=== PATIENT | male | born 1990 | race African-American/Black ===

== ENCOUNTER 2018-09-04 07:10 | Emergency (ER) | payer SELFPAY ==
[2018-09-04 07:18] VITALS: BP 115/67
[2018-09-04] MEDS ORDERED: PENICILLIN V POTASSIUM 500 MG TABLET PO ONE (07:35)
[2018-09-04] MEDS ORDERED: HYDROCODONE/ACETAMINOPHEN 5-325 MG (6 TAB/ER DISP) PO PRN (07:35)
[2018-09-04] MEDS ORDERED: IBUPROFEN 600 MG TABLET PO ONE (07:35)
[2018-09-04] MEDS ORDERED: LIDOCAINE 2% VISCOUS SOLN 20 ML UDCUP PO ONE (07:35)
--- NOTE | 2018-09-04 07:39 | ER Document Report ---
HPI - HPI Time Seen by Provider: 09/04/18 07:23 Pain Level: 4 Notes: Patient is an otherwise healthy 27-year-old male who presents to the emergency department with complaint of right lower dental pain. He reports that he had a temporary crown placed approximately 2 years ago and had not been able to return to the dentist. He states that over the last week he has had constant throbbing to this area with worsening today. He states that he has a headache now due to this. He denies any fever. Past Medical History - General Information source: Patient - Social History Smoking Status: Current Some Day Smoker Frequency of alcohol use: None Drug Abuse: Marijuana Family History: Reviewed & Not Pertinent Patient has suicidal ideation: No Patient has homicidal ideation: No - Medical History Medical History: Negative Renal/ Medical History: Denies: Hx Peritoneal Dialysis Surgical Hx: Negative - Immunizations Hx Diphtheria, Pertussis, Tetanus Vaccination: Yes Vertical Provider Document - CONSTITUTIONAL Notes: PHYSICAL EXAMINATION: GENERAL: Well-appearing, well-nourished and in no acute distress. HEAD: Atraumatic, normocephalic. Mild facial swelling noted. EYES: Pupils equal round extraocular movements intact, conjunctiva are normal. ENT: Nares patent, erythema noted around tooth #19, no drainable abscess identified. Significant tenderness with palpation around the tooth. NECK: Normal range of motion LUNGS: No respiratory distress Musculoskeletal: Normal range of motion NEUROLOGICAL: Normal speech, normal gait. PSYCH: Normal mood, normal affect. SKIN: Warm, Dry, normal turgor, no rashes or lesions noted. Course - Re-evaluation Re-evalutation: 09/04/18 07:37 Patient has not been here previously for dental pain. Examination consistent with acute dental infection. Patient will be placed on penicillin, provided short course of analgesia and referred to dental. - Vital Signs Vital signs: Temp Pulse Resp BP Pulse Ox 98.3 F 61 14 115/67 100 09/04/18 07:18 09/04/18 07:18 09/04/18 07:18 09/04/18 07:18 09/04/18 07:18 Discharge - Discharge Clinical Impression: Dental infection Condition: Stable Disposition: HOME, SELF-CARE Additional Instructions: TOOTHACHE: Your pain is due to dental decay. The tooth must be repaired in order for you to feel better. You will, therefore, be referred to a dentist. We do not have dentists on the staff at [facility]. Severe swelling or drainage around a tooth usually means a dental abscess. This also requires evaluation and treatment by the dentist, but antibiotics may be prescribed while awaiting dental treatment. You should be rechecked immediately if you develop major swelling of the face, increasing pain, a lump in the jaw or gums, headache, difficulty swallowing, or fever. ORAL NARCOTIC MEDICATION: You have been given a prescription for pain control. This medication is a narcotic. It's best taken with food, as nausea can result if taken on an empty stomach. Don't operate machinery or drive within six hours of taking this medication. Do not combine this medicine with alcohol, or with any medication which can cause sedation (such as cold tablets or sleeping pills) unless you get permission from the physician. Narcotics tend to cause constipation. If possible, drink plenty of fluids and eat a diet high in fiber and fruits. Please be aware that prescription narcotics also have the potential for abuse. People become addicted to these medications because of the general sense of wellbeing that they induce. This feeling along with a significant reduction in tension, anxiety, and aggression provides a stimulating seductive quality to these drugs. Once your pain is under control, we encourage you to discard your unused narcotics. PENICILLIN V K: You have been given a prescription for Penicillin VK. Your physician has determined that this is the best antibiotic for your condition. Pen VK can be taken with meals, however more of the antibiotic gets into the bloodstream if it's taken on an empty stomach. Penicillin usually has no side effects. However, allergy to penicillins is common. If you have had an allergic reaction to any drug of the penicillin family, you should never take any other penicillin. Notify your doctor at once if you develop hives, itching, swelling, faintness, or shortness of breath. FOLLOW-UP CARE: You have been referred for follow-up care to the dentists listed below. Call the dentists office for an appointment as you were instructed or within the next two days. If you experience worsening or a significant change in your symptoms, notify the physician immediately or return to the Emergency Department at any time for re-evaluation. [address] Please take ibuprofen 600 mg every 6 hours for the next several days. This will not only help with the pain but also the inflammation. Use the hydrocodone that I provided you for severe pain only as we will not re-prescribe this. You may take 1/2-1 tablet every 4-6 hours. Use the lidocaine jelly as needed apply directly to the surrounding area of the tooth to help with pain. Please [facility] today to schedule an appointment. Prescriptions: Penicillin V Potassium [Penicillin Vk 500 mg Tablet] 500 mg PO BID #20 tablet Referrals: JASVIR KAT MD [Primary Care Provider] - Follow up as needed
== END 2018-09-04 07:53 | disposition home or self-care (01) ==
LOC: ER 07:10
DX: K04.7 Periapical abscess without sinus (principal); F17.200 Nicotine dependence, unspecified, uncomplicated
CPT/HCPCS: 99282; J3490

== ENCOUNTER 2018-10-10 18:25 | Emergency (ER) | payer SELFPAY ==
[2018-10-10] MEDS ORDERED: LIDOCAINE 1% INJ-PF (10 MG/ML) 30 ML SDV INJ ONE (20:10)
[2018-10-10] MEDS ORDERED: BUPIVACAINE HCL 0.5%-EPI 1:200000 INJ/PF 30 ML VIAL INJ ONE (20:10)
[2018-10-10] MEDS ORDERED: PENICILLIN V POTASSIUM 500 MG TABLET PO ONE (20:12)
--- NOTE | 2018-10-10 20:21 | ER Document Report ---
ED Oral Problem - General Chief Complaint: Toothache Stated Complaint: TOOTH PAIN Time Seen by Provider: 10/10/18 20:00 Mode of Arrival: Ambulatory Information source: Patient Notes: 27-year-old male presents to ED for complaint of dental pain times 6 weeks. He states he was seen here in the beginning of August and they sent him to the dentist. He states he went to the dentist and they gave him a bunch of paperwork and told him to come back on Sunday and they were telling whether he qualified for the dental care at the office. He states then he will have to get another appointment to have his tooth treated. He states that she has been taking [id number] medications with no improvement. He states he took all the medications he was given last time. Patient is alert oriented respirations regular and unlabored speaking in full sentences. He is accompanied by his mother who is stated she did take him to the dentist and he is scheduled to return on Sunday. TRAVEL OUTSIDE OF THE [place] IN LAST 30 DAYS: No - HPI Patient complains to provider of: Toothache Onset: Other - 6 weeks Onset: Gradual Quality of pain: Sharp, Throbbing Severity: Severe Pain Level: 5 Associated symptoms: Toothache Worsened by: Cold Relieved by: Nothing Similar symptoms previously: Yes Recently seen / treated by doctor/dentist: Yes - Related Data Allergies/Adverse Reactions: No Known Allergies Allergy (Verified 12/17/12 14:15) Past Medical History - General Information source: Patient - Social History Smoking Status: Current Every Day Smoker Chew tobacco use (# tins/day): No Frequency of alcohol use: None Drug Abuse: None Lives with: Spouse/Significant other Family History: Reviewed & Not Pertinent Patient has suicidal ideation: No Patient has homicidal ideation: No - Past Medical History Cardiac Medical History: Reports: None Pulmonary Medical History: Reports: None EENT Medical History: Reports: None Neurological Medical History: Reports: None Endocrine Medical History: Reports: None Renal/ Medical History: Reports: None Malignancy Medical History: Reports None GI Medical History: Reports: None Musculoskeletal Medical History: Reports None Skin Medical History: Reports None Psychiatric Medical History: Reports: None Traumatic Medical History: Reports: None Infectious Medical History: Reports: None Surgical Hx: Negative Past Surgical History: Reports: None - Immunizations Hx Diphtheria, Pertussis, Tetanus Vaccination: Yes Review of Systems - Review of Systems Constitutional: No symptoms reported EENT: Dental problem Cardiovascular: No symptoms reported Respiratory: No symptoms reported Gastrointestinal: No symptoms reported Genitourinary: No symptoms reported Male Genitourinary: No symptoms reported Musculoskeletal: No symptoms reported Skin: No symptoms reported Hematologic/Lymphatic: No symptoms reported Neurological/Psychological: No symptoms reported Physical Exam - Vital signs Vitals: Temp Pulse Resp BP Pulse Ox 97.8 F 81 16 114/68 98 10/10/18 18:29 10/10/18 18:29 10/10/18 18:29 10/10/18 18:29 10/10/18 18:29 Interpretation: Normal - General General appearance: Appears well, Alert - HEENT Head: Normocephalic, Atraumatic Eyes: Normal Pupils: PERRL Ears: Normal External canal: Normal Tympanic membrane: Normal Sinus: Normal Nasal: Normal Mouth/Lips: Caries Teeth diagram: 1 - Cavity 2 - A cavity with redness surrounding the tooth tenderness to the tooth Pharynx: Normal Neck: Normal. No: Anterior cervical chain - Respiratory Respiratory status: No respiratory distress Chest status: Nontender Breath sounds: Normal Chest palpation: Normal - Cardiovascular Rhythm: Regular Heart sounds: Normal auscultation Murmur: No - Abdominal Inspection: Normal Distension: No distension Bowel sounds: Normal Tenderness: Nontender Organomegaly: No organomegaly - Back Back: Normal, Nontender - Extremities General upper extremity: Normal inspection, Nontender, Normal color, Normal ROM, Normal temperature General lower extremity: Normal inspection, Nontender, Normal color, Normal ROM, Normal temperature, Normal weight bearing. No: Ceci's sign - Neurological Neuro grossly intact: Yes Cognition: Normal Orientation: AAOx4 Cindy Coma Scale Eye Opening: Spontaneous [place] Coma Scale Verbal: Oriented Cindy Coma Scale Motor: Obeys Commands [place] Coma Scale Total: 15 Speech: Normal Motor strength normal: LUE, RUE, LLE, RLE Sensory: Normal - Psychological Associated symptoms: Normal affect, Normal mood - Skin Skin Temperature: Warm Skin Moisture: Dry Skin Color: Normal Course - Re-evaluation Re-evalutation: 10/10/18 20:31 Patient was treated with a dental block of 4 cc of 1% lidocaine and 2 cc of 0.5% Sensorcaine into the left inferior alveolar space. Patient received relief from discomfort with the dental block. He was also instructed on use of anti- inflammatories either Aleve or ibuprofen and was written a prescription for for [place] to use at nighttime until he can follow-up with the dentist on Sunday. Mother states he went to the dentist last week and they told him to come back on Sunday. Patient verbalized understanding and agreement with treatment plan and patient was discharged home. Presentation is most consistent with likely an infected tooth. Airway is patent. Vitals within normal limits. Patient is able swallow without any difficulty. There is no significant facial swelling. No evidence of [place] angina, apical abscess, or airway obstruction. Patient will be started on antibiotics. I've instructed to follow-up with dentistry as earliest ability for definitive management. At this time will discharge with return precautions and follow-up recommendations. Verbal discharge instructions given a the bedside and opportunity for questions given. Medication warnings reviewed. Patient is in agreement with this plan and has verbalized un derstanding of return precautions and the need for primary care follow-up in the next 24-72 hours. - Vital Signs Vital signs: Temp Pulse Resp BP Pulse Ox 97.9 F 63 16 120/74 99 10/10/18 20:34 10/10/18 20:34 10/10/18 20:34 10/10/18 20:34 10/10/18 20:34 Discharge - Discharge Clinical Impression: Pain due to dental caries Condition: Stable Disposition: HOME, SELF-CARE Additional Instructions: TOOTHACHE: Your pain is due to dental decay. The tooth must be repaired in order for you to feel better. You will, therefore, be referred to a dentist. We do not have dentists on the staff at [facility]. Severe swelling or drainage around a tooth usually means a dental abscess. This also requires evaluation and treatment by the dentist, but antibiotics may be prescribed while awaiting dental treatment. You should be rechecked immediately if you develop major swelling of the face, increasing pain, a lump in the jaw or gums, headache, difficulty swallowing, or fever. ORAL NARCOTIC MEDICATION: You have been given a prescription for pain control. This medication is a narcotic. It's best taken with food, as nausea can result if taken on an empty stomach. Don't operate machinery or drive within six hours of taking this medication. Do not combine this medicine with alcohol, or with any medication which can cause sedation (such as cold tablets or sleeping pills) unless you get permission from the physician. Narcotics tend to cause constipation. If possible, drink plenty of fluids and eat a diet high in fiber and fruits. Please be aware that prescription narcotics also have the potential for abuse. People become addicted to these medications because of the general sense of wellbeing that they induce. This feeling along with a significant reduction in tension, anxiety, and aggression provides a stimulating seductive quality to these drugs. Once your pain is under control, we encourage you to discard your unused narcotics. PENICILLIN V K: You have been given a prescription for Penicillin VK. Your physician has determined that this is the best antibiotic for your condition. Pen VK can be taken with meals, however more of the antibiotic gets into the bloodstream if it's taken on an empty stomach. Penicillin usually has no side effects. However, allergy to penicillins is common. If you have had an allergic reaction to any drug of the penicillin family, you should never take any other penicillin. Notify your doctor at once if you develop hives, itching, swelling, faintness, or shortness of breath. Ibuprofen Ibuprofen is an excellent, safe drug for pain control. In addition, it has potent antiinflammatory effects which are beneficial, especially in the treatment of injuries, arthritis, or tendonitis. It's best to take ibuprofen with food. Persons with ulcer disease or allergy to aspirin should notify their physician of this before taking ibuprofen. Take the medication exactly as prescribed. Don't take additional doses unless instructed to do so by your doctor. If you develop wheezing, shortness of breath, hives, faintness, stomach pain, vomiting, or dark black stools, return for re-evaluation at once. FOLLOW-UP CARE: You have been referred for follow-up care to the dentists listed below. Call the dentists office for an appointment as you were instructed or within the next two days. If you experience worsening or a significant change in your symptoms, notify the physician immediately or return to the Emergency Department at any time for re-evaluation. [facility] [address] [place] [address] [facility] [place] [address] [facility] [address] [facility] [address] [facility] [address] [email or web address] [address] [place] [address] Sunday- 8:00am to 5:00 pm Will see patients from other [facility]. Charges based on income and family size and accepts Medicare, Medicaid, and Insurances Will pull molars [facility] [address] Hours of Operation 8:00 am - 4:30 pm weekdays The following dental offices accept Medicaid: [facility] Dr. [address] Dr. Orozco Dr. Rushing Dr. Wylie Sanford Escobar, [place], and Og oral surgery Dr. Angel ([place]) Dr. Bolton ([place]) [facility] Drs. Cooley ([place]) Dr. Willis ([place]) [facility] Dr. Sheikh ([place]) Drs. Adame and ([place]) Medicaid Care Line Prescriptions: Hydrocodone/Acetaminophen [[place] 5-325 mg Tablet] 1 tab PO QHS PRN #4 tablet PRN Reason: For Pain Penicillin V Potassium [Penicillin Vk 500 mg Tablet] 500 mg PO BID #20 tablet Forms: Smoking Cessation Education
[2018-10-10 20:36] VITALS: BP 120/74
== END 2018-10-10 20:40 | disposition home or self-care (01) ==
LOC: ER 18:25
DX: K02.9 Dental caries, unspecified (principal); K08.89 Other specified disorders of teeth and supporting structures; F17.200 Nicotine dependence, unspecified, uncomplicated
CPT/HCPCS: 99282; J3490 ×2

== ENCOUNTER 2019-04-02 18:42 | Emergency (ER) | payer SELFPAY ==
[2019-04-02 18:48] VITALS: BP 121/73
--- NOTE | 2019-04-02 19:05 | ER Document Report ---
HPI - HPI Time Seen by Provider: 04/02/19 19:00 Pain Level: Denies Notes: Patient is a 28-year-old male with a history of bronchitis when he was younger who presents complaining of dry semi-productive cough over the past week. Patient states that he has been able to eat and drink without difficulty. He is urinating normally. Denies drug allergies. No other recent illness. Patient states that he does feel short of breath only during a coughing fit, never at rest or with ambulation. Denies any headache, fever, URI, sore throat, chest pain, palpitations, syncope, abdominal pain, nausea/vomiting/diarrhea, urinary retention, dysuria, hematuria, or rash. - ROS Systems Reviewed and Negative: Yes All other systems reviewed and negative - REPRODUCTIVE Reproductive: DENIES: : Past Medical History - Social History Smoking Status: Current Every Day Smoker Family History: Reviewed & Not Pertinent Renal/ Medical History: Denies: Hx Peritoneal Dialysis - Immunizations Hx Diphtheria, Pertussis, Tetanus Vaccination: Yes Vertical Provider Document - CONSTITUTIONAL Agree With Documented VS: Yes Notes: PHYSICAL EXAMINATION: GENERAL: Well-appearing, well-nourished and in no acute distress. EYES: Pupils equal round and reactive to light, extraocular movements intact, sclera anicteric, conjunctiva are normal. ENT: Nares patent and without discharge. oropharynx clear without exudates. No tonsilar hypertrophy or erythema. Moist mucous membranes. NECK: Normal range of motion, supple without lymphadenopathy LUNGS: Breath sounds clear to auscultation bilaterally and equal. No wheezes rales or rhonchi. No retractions HEART: Regular rate and rhythm without murmurs, rubs, gallops. Musculoskeletal: FROM to passive/active. Strength 5+/5. Ceci neg. No asymmetry to LE's. Extremities: No cyanosis, clubbing, or edema b/l. Peripheral pulses 2+. Capillary refill less than 3 seconds. NEUROLOGICAL: Normal speech, normal gait. PSYCH: Normal mood, normal affect. SKIN: Warm, Dry, normal turgor, no rashes or lesions noted. - INFECTION CONTROL TRAVEL OUTSIDE OF THE [place] IN LAST 30 DAYS: No Course - Re-evaluation Re-evalutation: 04/02/19 Patient is an afebrile, well-hydrated, 28-year-old male who presents with acute bronchitis, suspect viral. Vitals are acceptable without significant tachycardia, tachypnea, or hypoxia. PE is otherwise unremarkable. Patient's lungs are clear to auscultation bilaterally. He is nontoxic-appearing and is able to tolerate p.o. without difficulty. Chest x-ray was unremarkable. No further work-up warranted at this time. Patient's presentation and physical exam presents for lower suspicion of ACS, PE, pneumothorax, pericarditis, dissection, respiratory compromise, severe dehydration, sepsis, meningitis, or other systemic emergent condition at this time. Patient is aware that this condition can change from initial presentation and he needs to monitor symptoms closely and seek medical attention for any acute changes. Patient states that an inhaler usually works well for him so I will send him home with a prescription for albuterol. Recommend conservative measures for symptoms. Recheck with your PCM in 3-5 days. Return to the ED with any worsening/ concerning symptoms otherwise as reviewed in discharge. Patient is in agreement. - Vital Signs Vital signs: Temp Pulse Resp BP Pulse Ox 98.4 F 81 18 121/73 97 04/02/19 18:47 04/02/19 18:47 04/02/19 18:47 04/02/19 18:47 04/02/19 18:47 Discharge - Discharge Clinical Impression: Acute viral bronchitis Condition: Stable Disposition: HOME, SELF-CARE Instructions: Upper Respiratory Illness ([facility]) Additional Instructions: Maintain adequate fluid intake tylenol/ibuprofen as needed alternating every 3 hours for fever/body ache over the counter cold medication as needed for symptoms Humidified air may help Wash your hands regularly Wear a mask when coughing F/u: with your PCM in 3-5 days for a recheck Return to the ED with any fever, altered mental status/behavior, chest pain, palpitations, syncope, headache, neck pain/stiffness, shortness of breath, chest pains, wheezing, drooling, trouble swallowing/breathing, abdominal pain, n/v/d, rash, or worsening/concerning symptoms otherwise. Prescriptions: Benzonatate [Tessalon Perle 100 mg Capsule] 100 mg PO Q8HP PRN #15 cap PRN Reason: Albuterol Sulfate [Proair HFA Inhalation Aerosol 8.5 gm MDI] 2 puff IH Q4H PRN #1 mdi PRN Reason: Forms: Smoking Cessation Education Referrals: [facility] [Provider Group] - Follow up as needed
--- NOTE | 2019-04-02 19:37 | RADIOLOGY REPORT (SQ) ---
EXAM DESCRIPTION: CHEST 2 VIEWS COMPLETED DATE/TIME: 04/02/2019 7:16 pm REASON FOR STUDY: cough COMPARISON: None. EXAM PARAMETERS: NUMBER OF VIEWS: two views TECHNIQUE: Digital Frontal and Lateral radiographic views of the chest acquired. RADIATION DOSE: NA LIMITATIONS: none FINDINGS: LUNGS AND PLEURA: No opacities, masses or pneumothorax. No pleural effusion. MEDIASTINUM AND HILAR STRUCTURES: No masses or contour abnormalities. HEART AND VASCULAR STRUCTURES: Heart normal size. No evidence for failure. BONES: No acute findings. HARDWARE: None in the chest. OTHER: No other significant finding. IMPRESSION: NO ACUTE RADIOGRAPHIC FINDING IN THE CHEST. TECHNICAL DOCUMENTATION: JOB ID: [id number] [employer]- All Rights Reserved Reading location - IP/workstation name: [email or web address]
== END 2019-04-02 19:52 | disposition home or self-care (01) ==
LOC: ER 18:42
DX: J20.8 Acute bronchitis due to other specified organisms (principal); F17.200 Nicotine dependence, unspecified, uncomplicated
CPT/HCPCS: 71046

== ENCOUNTER 2019-04-09 18:40 | Emergency (ER) | payer SELFPAY ==
[2019-04-09 18:59] VITALS: BP 126/83
== END 2019-04-09 20:08 | disposition left against medical advice (07) ==
LOC: ER 18:40
DX: Z53.21 Procedure and treatment not carried out due to patient leaving prior to being seen by health care provider (principal)

== ENCOUNTER 2019-08-21 08:01 | Emergency (ER) | payer SELFPAY ==
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
--- NOTE | 2019-08-21 09:31 | RADIOLOGY REPORT (SQ) ---
EXAM DESCRIPTION: FOOT RIGHT COMPLETE COMPLETED DATE/TIME: 08/21/2019 8:50 am REASON FOR STUDY: Foot Injury COMPARISON: None. NUMBER OF VIEWS: Three views. TECHNIQUE: AP, lateral and oblique radiographic images acquired of the right foot. LIMITATIONS: None. FINDINGS: MINERALIZATION: Normal. BONES: No acute fracture or dislocation. No worrisome bone lesions. JOINTS: No effusions. SOFT TISSUES: No soft tissue swelling. No foreign body. OTHER: No other significant finding. IMPRESSION: NEGATIVE STUDY OF THE RIGHT FOOT. NO RADIOGRAPHIC EVIDENCE OF ACUTE INJURY. TECHNICAL DOCUMENTATION: JOB ID: [id number]- All Rights Reserved Reading location - IP/workstation name: [email or web address]
[2019-08-21 09:41] VITALS: BP 112/62
== END 2019-08-21 09:40 | disposition home or self-care (01) ==
LOC: ER 08:01
DX: M79.671 Pain in right foot (principal); V86.95XA Unspecified occupant of 3- or 4- wheeled all-terrain vehicle (ATV) injured in nontraffic accident, initial encounter; Y93.89 Activity, other specified
CPT/HCPCS: 99283

== ENCOUNTER 2020-05-06 07:11 | Emergency (ER) | payer SELFPAY ==
[2020-05-06 11:05] LABS: ABSOLUTE BASOPHILS # (AUTO) 0.1 10^3/uL (0.0-0.2); ABSOLUTE EOSINOPHILS # (AUTO) 0.1 10^3/uL (0.0-0.6); ABSOLUTE LYMPHOCYTES (AUTO) 1.3 10^3/uL (0.5-4.7); ABSOLUTE MONOCYTES (AUTO) 0.4 10^3/uL (0.1-1.4); ABSOLUTE NEUT (AUTO) 4.4 10^3/uL (1.7-8.2); BASOPHILS % (AUTO) 0.9 % (0-2); EOSINOPHILS % (AUTO) 1.2 % (0-6); HEMATOCRIT 44.8 % (37.9-51.0); LYMPHOCYTES % (AUTO) 21.3 % (13-45); MEAN CORPUSCULAR HEMOGLOBIN 31.8 pg (27.0-33.4); MEAN CORPUSCULAR HGB CONC 35.7 g/dL (32.0-36.0); MEAN CORPUSCULAR VOLUME 89 fl (80-97); MONOCYTES % (AUTO) 5.7 % (3-13); PLATELET COUNT 207 10^3/uL (150-450); RED BLOOD COUNT 5.04 10^6/uL (4.35-5.55); RED CELL DISTRIBUTION WIDTH 12.7 % (11.5-14.0); SEGMENTED NEUTROPHILS % (AUTO) 70.9 % (42-78); TOTAL CELLS COUNTED % (AUTO) 100 %; WHITE BLOOD COUNT 6.2 10^3/uL (4.0-10.5)
--- NOTE | 2020-05-06 11:23 | ER Document Report ---
ED General - General Chief Complaint: Anxiety Stated Complaint: ANIXIETY Time Seen by Provider: 05/06/20 10:04 TRAVEL OUTSIDE OF THE [place] IN LAST 30 DAYS: No - HPI Notes: Chief complaint: Anxiety History of present illness: 29-year-old male states that he has a longstanding history of anxiety and what sounds like mild panic disorder with recent wor sening of symptoms. Patient currently lives with his mother. He is working in vending machine service industry. States he is having trouble sleeping at night and finds that his thoughts during the night sometimes seem to race and he feels panicked. He had such an episode last night and was feeling tightness in his chest and vomiting and decided to come to the hospital. His symptoms are improv ed and essentially resolved after arrival here. He denies any unusual stress at this time and says he is unsure what set off the episode. He remarks that he has had a history of doing this on and off for years but this was the worst episode that he is experienced during that time. He was apparently admitted as an inpatient to [facility] over 5 years ago after evaluation through the emergency department for some common impulse control disorder. He says he briefly took medication but no longer is on medicine. He endorses occasional use of marijuana. He denies any other drug abuse. Says that he drinks beer on occasion but not on a daily basis. He denies any other significant medical problems. He denies hallucinations auditory or visual. He denies any suicidal/homicidal ideation. - Related Data Allergies/Adverse Reactions: No Known Allergies Allergy (Verified 08/21/19 08:27) Past Medical History - General Information source: Patient, Parent, [facility] Records - Social History Smoking Status: Never Smoker Frequency of alcohol use: Occasional Drug Abuse: Marijuana Family History: Reviewed & Not Pertinent Pulmonary Medical History: Reports: Hx Bronchitis Renal/ Medical History: Denies: Hx Peritoneal Dialysis Psychiatric Medical History: Reports: Hx Anxiety - Immunizations Hx Diphtheria, Pertussis, Tetanus Vaccination: Yes Review of Systems - Review of Systems Notes: Constitutional: Negative for fever. HENT: Negative for sore throat. Eyes: Negative for visual changes. Cardiovascular: As per HPI. Respiratory: As per HPI. Gastrointestinal: As per HPI. Genitourinary: Negative for dysuria. Musculoskeletal: Negative for back pain. Skin: Negative for rash. Neurological: Negative for headaches, weakness or numbness. 10 point ROS negative except as marked above and in HPI. Physical Exam - Vital signs Vitals: Temp Pulse Resp BP Pulse Ox 98.6 F 58 L 18 120/74 96 05/06/20 07:38 05/06/20 07:38 05/06/20 07:38 05/06/20 07:38 05/06/20 07:38 - Notes Notes: GENERAL: Slender male approximately stated age appearing mildly anxious. SKIN: Good turgor no rashes. HEAD: Normocephalic atraumatic. EYES: PERRLA. EOMI. Conjunctivae and sclerae clear. EARS: CANALS AND TMS CLEAR. NOSE: CLEAR. MOUTH: Moist mucosa. Good dentition. No stridor or edema. No drooling. NECK: Supple. No masses or thyromegaly. No adenopathy. Carotids 2+ without bruits. No JVD. BACK: Symmetrical without tenderness. CHEST: Respirations unlabored. Breath sounds clear and symmetrical. HEART: Regular rhythm. No murmur gallop or rub. ABDOMEN: Soft nontender without masses, organomegaly or rebound. Bowel sounds normally active. No bruits. GENITALIA: Deferred. EXTREMITIES: No edema. No calf tenderness. Cap refill less than 1.5 seconds. Dorsalis pedis and posterior tibial pulses 3+ and symmetrical. NEUROLOGICAL: GCS 15. Alert and oriented x3. Normal gait. Fluent speech. Cranial nerves II through XII intact. Sensorimotor and cerebellar normal. Normal tone. PSYCHIATRIC: Mildly anxious affect. Course - Re-evaluation Re-evalutation: 05/06/20 12:21 Patient is been cleared medically at this time. I will ask behavioral health team to see him for consultation. I think he is a candidate for outpatient mental health referral. I told him I would give him a brief prescription of benzodiazepine for as needed use. Findings, clinical impression and plan of treatment have been discussed with patient/family. Understanding of current findings and recommendations has been acknowledged by them and there is agreement regarding disposition and follow-up. 05/06/20 13:21 Patient has been evaluated by behavioral health team. They feel that he is stable for outpatient psychiatry follow-up and they will make these arrangements. They have recommended outpatient prescriptions for BuSpar 5 mg twice daily and Zyprexa 2.5 mg twice daily. I have written a 30-day supply of both medications. - Vital Signs Vital signs: Temp Pulse Resp BP Pulse Ox 98.6 F 58 L 18 120/74 96 05/06/20 07:38 05/06/20 07:38 05/06/20 07:38 05/06/20 07:38 05/06/20 07:38 - Laboratory Result Diagrams: 05/06/20 10:48 05/06/20 10:48 Laboratory results interpreted by me: 05/06/20 05/06/20 10:48 10:48 Carbon Dioxide 31 H Total Protein 8.6 H Urine Protein 30 H - EKG Interpretation by Me Additional EKG results interpreted by me: 05/06/20 11:22 Twelve-lead EKG reviewed by me contemporaneously: 1046 hrs. Indication for study: Weakness Rhythm: Sinus bradycardia Rate: 57 Intervals: Normal QRS axis: +[address] ST/T wave changes: Minimal ST elevation V1 through V3 consistent with early repolarization Comparison with prior tracing: None Interpretation: Sinus bradycardia. Early repolarization. Discharge - Discharge Clinical Impression: Generalized anxiety disorder, Panic attack, Cannabis abuse Condition: Stable Disposition: HOME, SELF-CARE Instructions: Anxiety ([facility]) Additional Instructions: Discontinue use of marijuana. A work note has been provided for you for the next 3 days. Take prescribed medications as directed. Return here as needed for new or worsening symptoms. Prescriptions: Buspirone HCl [Buspar 10 mg Tablet] 5 mg PO BID 30 Days #30 tab Olanzapine [Zyprexa 2.5 Mg Tablet] 2.5 mg PO BID 30 Days #60 tablet Forms: Return to Work
[2020-05-06 11:26] LABS: ALKALINE PHOSPHATASE 44 U/L (38-126); ANION GAP 8 (5-19); ASPARTATE AMINO TRANSFERASE 32 U/L (17-59); BILIRUBIN,DIRECT 0.2 mg/dL (0.0-0.4); BILIRUBIN,TOTAL 0.5 mg/dL (0.2-1.3); BLOOD UREA NITROGEN 9 mg/dL (7-20); CALCIUM 9.7 mg/dL (8.4-10.2); CARBON DIOXIDE 31 mmol/L (22-30); CHLORIDE 102 mmol/L (98-107); GLUCOSE 105 mg/dL (75-110); POTASSIUM 4.2 mmol/L (3.6-5.0); TOTAL PROTEIN 8.6 g/dL (6.3-8.2)
[2020-05-06 11:27] LABS: ALCOHOL < 10 mg/dL (NONE DETECTED); AMORPHOUS SEDIMENT,URINE TRACE /HPF; APPEARANCE,URINE SLIGHTLY-CLOUDY; BILIRUBIN,URINE NEGATIVE (NEGATIVE); COLOR,URINE YELLOW; GLUCOSE, URINE NEGATIVE (NEGATIVE); KETONES,URINE NEGATIVE (NEGATIVE); PROTEIN,URINE 30 mg/dL (NEGATIVE); UROBILINOGEN,URINE NEGATIVE mg/dL (<2.0)
[2020-05-06 11:53] LABS: URINE AMPHETAMINES SCREEN NEGATIVE; URINE BARBITURATES SCREEN NEGATIVE; URINE BENZODIAZEPINES SCREEN NEGATIVE; URINE COCAINE SCREEN NEGATIVE; URINE METHADONE SCREEN NEGATIVE; URINE PHENCYCLIDINE SCREEN NEGATIVE
[2020-05-06 11:55] LABS: URINE MARIJUANA (THC) SCREEN UNCONFIRMED POSITIVE
[2020-05-06 13:38] VITALS: BP 121/74
--- NOTE | 2020-05-06 18:32 | EKG REPORT ---
SEVERITY:- NORMAL ECG - SINUS RHYTHM ST ELEV, PROBABLE NORMAL EARLY REPOL PATTERN : Confirmed by: Demarco Cox 06-May-2020 18:31:16
--- NOTE | 2020-05-07 12:50 | PSYCHOLOGICAL NOTE ---
Psych Note - Psych Note Date seen by psych provider: 05/06/20 Time seen by psych provider: 12:29 - Evaluation with patient from [id number]. Mother present but did step away when asked. 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 Patient reported "I have anxiety and panic attacks all the time, last night was the worst, I cannot recall anything that triggered it, no new worries or stress, but it woke me up out of my sleep." He further stated "it is really hard to explain what the feeling is when the anxiety starts, it just doesn't feel right, I feel it in my stomach but it's not nausea." He at first denied drug use and admitted to alcohol use "occasionally." This clinician asked mother if she would step away and she did. Asked patient about Cannabis use since Urine Drug Screen was positive. He admitted to "everyday use, it is what helps me when the anxiety wakes me up in the middle of the night at 0200, I smoke, then I am okay and can get back to sleep." Challenged patient on effectiveness since it keeps occurring and psychoeducated how Cannabis use can actually increase anxiety and depression. Patient and mother confirmed chart review information where he was previously seen by Dr. Landers at [facility] as a child for anger issues. Patient acknowledged he continued to have anger issues but that has not been a problem in at least a couple years. he and mother admitted to being treated for ADHD as a child and being prescribed Adderall. Mother noted family history of mental health with her daughter. Patient denied suicidal and homicidal ideation. He did not appear to be experiencing anxiety during evaluation (note had been in Emergency Department since 710). They denied current outpatient treatment for the anxiety and were psychoeducated on the importance of therapy for anxiety related issues, not just medication. Patient was alert and oriented to self, person, place, time and situation. Mood was euthymic with congruent affect. He denied current suicidal and homicidal ideation which were never presenting concerns.. Patient did not appear to be responding to internal stimuli as evidenced by fair eye contact, answering questions appropriately when addressed and carrying on dialogue conversation. Thought processes were linear and organized. Conversational speech was within normal limits for rate, tone and prosody. Intellectual abilities are estimated to be average. Insight, judgment and impulse control were fair as evidenced by discussing his anxiety and explaining the best he could. [place] indicated patient has only had two short term prescriptions of Hydrocodone-Acetaminophen prescribed in September 2018 and no other controlled substances since 2016. Clinical Presentation: Anxiety Cannabis Use Disorder Severe Medication recommendations made by the psychiatric medication provider Dr. Quentin ESCOBEDO., includes: Add Buspar 5MG twice a day for anxiety/calming effect/depression/sleep Add Zyprexa 2.5MG twice a day for calming effect/mood stabilization/impulse control Impression/Plan: Patient is cleared from acute psychiatric services. He denied suicidal and homicidal ideation. There was no observed psychosis. His concerns were anxiety and panic attacks that wake him out of his sleep. Challenged p atient on his perspective that Cannabis has been effective in managing his anxiety. Psychoeducated patient on Cannabis increasing anxiety and depression, as well as the need for therapy in anxiety treatment not just medication. Patient provided with prescriptions to help with symptom management and encouraged to seek outpatient therapy. Provided patient with the outpatient mental health resource sheet which highlighted both local mobile crisis numbers, as well as documented walk in times for both [facility] and [facility] to initiate outpatient services (medication management and therapy). Mother present for discussion of plan of care. No immediate concerns for medication seeking or doctor shopping given [place] information. Consulted with Dr. Ortega regarding the management and care of patient. ED Physician in agreement with recommendations.
== END 2020-05-06 13:38 | disposition home or self-care (01) ==
LOC: ER 07:11
DX: F41.1 Generalized anxiety disorder (principal); F41.0 Panic disorder [episodic paroxysmal anxiety]; F12.10 Cannabis abuse, uncomplicated
CPT/HCPCS: 36415; 80053; 80307; 81001; 84443; 85025; 93005; 93010; 99284